=== PATIENT | female | born 1970 | race Caucasian/White ===

== ENCOUNTER 2017-07-18 11:30 | Emergency (ER) | payer BC ==
[2017-07-18 11:54] VITALS: RESP 18
[2017-07-18] MEDS ORDERED: METOCLOPRAMIDE 5 MG/ML 2 ML VIAL IVP STA (13:26)
[2017-07-18] MEDS ORDERED: KETOROLAC 30 MG/ML 1 ML VIAL IVP STA (13:26)
--- NOTE | 2017-07-18 13:28 | ED ---
Headache HPI - General Chief Complaint: Headache Stated Complaint: migraine Time Seen by Provider: 07/18/17 12:56 Source: patient, family, RN notes reviewed Mode of arrival: ambulatory Limitations: no limitations - History of Present Illness Initial Comments: This is a 47-year-old female history of migraine headaches states she had the onset of her typical migraine headache last evening. She states it starts in the lower occipital area radiates across her skull to the front. She's had profound nausea no vomiting no focal weakness she states the pain is typical of her migraine though a little bit worsening usual. He had no fevers chills sweats no earache sore throat rhinorrhea no loss of function to her upper or lower extremities no neck pain. She tried her home medications which failed to help with the headache this time. This has occurred in the past. MD Complaint: headache - Related Data Home Medications Medication Instructions Recorded Confirmed Abatacept [Orencia] 125 mg SQ FR 07/18/17 07/18/17 Citalopram Hydrobromide [CeleXA] 40 mg PO HS 07/18/17 07/18/17 Diclofenac Sodium 50 mg PO BID 07/18/17 07/18/17 Hydrocodone/Acetaminophen 1 - 2 tab PO BID PRN 07/18/17 07/18/17 [Hydrocodone/Acetaminophen 5-300] Levothyroxine Sodium [Synthroid] 50 mcg PO DAILY 07/18/17 07/18/17 Liothyronine Sodium [Cytomel] 5 mcg PO BID 07/18/17 07/18/17 Nadolol [Corgard] 10 mg PO HS 07/18/17 07/18/17 Topiramate [Topamax] 200 mg PO HS 07/18/17 07/18/17 Zaleplon 20 mg PO HS 07/18/17 07/18/17 tiZANidine [Zanaflex] 8 mg PO HS 07/18/17 07/18/17 Allergies Allergy/AdvReac Type Severity Reaction Status Date / Time penicillin V Allergy Anaphylaxis Verified 07/18/17 13:48 Sulfa (Sulfonamide Allergy Rash/Hives Verified 07/18/17 13:48 Antibiotics) Review of Systems ROS Statement: Those systems with pertinent positive or pertinent negative responses have been documented in the HPI. ROS Other: All systems not noted in ROS Statement are negative. Past Medical History Past Medical History: Thyroid Disorder Additional Past Medical History / Comment(s): Migraines, RA History of Any Multi-Drug Resistant Organisms: None Reported Additional Past Surgical History / Comment(s): Femoral nerve tumor removed Past Psychological History: No Psychological Hx Reported, Depression Smoking Status: Never smoker Past Alcohol Use History: Occasional Past Drug Use History: None Reported General Exam - General Exam Comments Initial Comments: This is a well-developed well-nourished awake alert oriented x 3 female Limitations: no limitations General appearance: alert, in no apparent distress Head exam: Present: atraumatic, normocephalic, normal inspection Eye exam: Present: normal appearance, PERRL, EOMI. Absent: scleral icterus, conjunctival injection, periorbital swelling ENT exam: Present: normal exam, mucous membranes moist Neck exam: Present: normal inspection. Absent: tenderness, meningismus, lymphadenopathy Respiratory exam: Present: normal lung sounds bilaterally. Absent: respiratory distress, wheezes, rales, rhonchi, stridor Cardiovascular Exam: Present: regular rate, normal rhythm, normal heart sounds. Absent: systolic murmur, diastolic murmur, rubs, gallop, clicks GI/Abdominal exam: Present: soft, normal bowel sounds. Absent: distended, tenderness, guarding, rebound, rigid Extremities exam: Present: normal inspection, full ROM, normal capillary refill. Absent: tenderness, pedal edema, joint swelling, calf tenderness Back exam: Present: normal inspection Neurological exam: Present: alert, oriented X3, CN II-XII intact Psychiatric exam: Present: normal affect, normal mood Skin exam: Present: warm, dry, intact, normal color. Absent: rash Course Vital Signs 07/18/17 11:51 Temperature 97.0 F L Pulse Rate 79 Respiratory 18 Rate Blood Pressure 129/68 O2 Sat by Pulse 100 Oximetry - Reevaluation(s) Reevaluation #1: 07/18/17 14:29 Patient states she is getting some relief thus far she started a 10/10 severity headache is down to 7/10 at this time. She will receive more medication. Reevaluation #2: 07/18/17 15:27 The patient's headache is now 0 she states after the last round of pain medication. Disposition Clinical Impression: Migraine Disposition: HOME SELF-CARE Condition: Good Instructions: Acute Headache (ED) Additional Instructions: Follow-up with your private medical doctor in 1-2 days Referrals: None,Stated [Primary Care Provider] - 1-2 days
[2017-07-18] MEDS ORDERED: diphenhydrAMINE 50 MG/ML 1 ML VIAL IVP STA (14:28)
[2017-07-18] MEDS ORDERED: HYDROmorphone 1 MG/ML 1 ML SYRINGE IVP STA (14:28)
[2017-07-18 15:34] VITALS: BP 102/90; PULSE 81; TEMP 98
== END 2017-07-18 15:37 | disposition home or self-care (01) ==
LOC: EC 11:30
DX: G43.909 Migraine, unspecified, not intractable, without status migrainosus (principal); E07.9 Disorder of thyroid, unspecified; F32.9 Major depressive disorder, single episode, unspecified; M06.9 Rheumatoid arthritis, unspecified; Z79.899 Other long term (current) drug therapy; Z88.0 Allergy status to penicillin; Z88.2 Allergy status to sulfonamides
CPT/HCPCS: 99283 ×2; 96374 ×2; 96375 ×4; J1200; J2765; J1885; J1170

== ENCOUNTER → 2018-08-19 | Outpatient (CLI) | payer BC ==
--- NOTE | 2018-08-19 11:44 | FL ---
EXAMINATION TYPE: FL barium swallow w video DATE OF EXAM: 08/19/2018 MODIFIED SWALLOW / DEGLUTITION STUDY CLINICAL HISTORY: Pill dysphagia. Possible Vinita's thyroiditis and Sjogren syndrome. TECHNIQUE: Deglutition study is performed utilizing thin liquid barium, barium thick pudding, and ba rium coated cracker. 2.19 minutes of fluoroscopy time was utilized. No fluoroscopic images were saved as the exam was video recorded. COMPARISON: None. FINDINGS: The oral and pharyngeal phases show satisfactory initiation and propagation with all modali ties tested. Normal mastication is seen with solid modalities tested. There is no evidence of penet ration or aspiration with any modality tested. Mid esophageal pharyngeal residue was appreciated. Sub sequently frontal images were then evaluated to further evaluate the pharyngeal residue. Persistent f ocal delayed transit in the upper to mid thoracic esophagus was appreciated with both barium coated p udding consistency and thin consistency without abnormal beaking or abnormal tertiary contractions. IMPRESSION: Normal oral and upper pharyngeal torsion of the deglutition study. However focal delaye d transit in the upper to mid thoracic esophagus is appreciated with no high-grade strictures seen. D ifferential is for low-grade stricture or motility disorder. Endoscopy is recommended for direct visu alization. Please refer to speech therapist notes for further details if necessary.
== END | disposition home or self-care (01) ==
LOC: RADFLMAIN 10:41
PROVIDERS: ATTEND Internal Medicine Endocrinology, Diabetes & Metabolism
DX: R13.10 Dysphagia, unspecified (principal)
CPT/HCPCS: 74230

== ENCOUNTER → 2019-07-28 | Outpatient (CLI) | payer BC ==
--- NOTE | 2019-07-30 20:55 | XR ---
EXAMINATION TYPE: XR wrist complete 4 views BILATERAL, XR hand complete 3 views bilateral DATE OF EXAM: 07/28/2019 COMPARISON: NONE HISTORY: 49-year-old female rheumatoid arthritis FINDINGS: Wrist: On the right, there is a small ossicle adjacent to the fracture. Slight positive ulnar variance outsi de. The radiocarpal and distal radioulnar joints as well as the midcarpal compartment appear intact. No acute fracture, subluxation, or dislocation. Hands: No marginal erosions or soft tissue calcifications seen. No acute fracture, subluxation, or dislocati on. Some periarticular osteopenia is noted. IMPRESSION: Some periarticular osteopenia which can be seen as an early change of rheumatoid arthritis. Otherwise , no marginal erosions or other specific radiographic findings of rheumatoid arthritis in the wrist o r hands at this time.
--- NOTE | 2019-07-30 20:58 | XR ---
EXAMINATION TYPE: XR ankle complete 3 views bilateral, XR foot complete 3 views bilateral DATE OF EXAM: 07/28/2019 Comparison: None Clinical History: 49-year-old female M06.9 Rheumatoid Arthritis Findings: Ankles: Ankle mortises are congruent. Achilles tendon smoothly delineated. No acute fracture, subluxation, or dislocation. No marginal erosions are seen. Subtalar joints are aligned. Feet: Mild degenerative change at the first MTP joints with bunion formation. Bipartite tibial sesamoid on the left. No acute fracture, subluxation, dislocation. No marginal erosion seen. IMPRESSION: 1. Mild osteoarthritic change at the bilateral first MTP joints with bunion formation. 2. No marginal erosions or specific radiographic findings of rheumatoid arthritis in the ankles or fe et.
== END ==
LOC: RADXRMAIN 16:52
PROVIDERS: ATTEND Internal Medicine Rheumatology
DX: M85.842 Other specified disorders of bone density and structure, left hand (principal); M85.841 Other specified disorders of bone density and structure, right hand; M19.072 Primary osteoarthritis, left ankle and foot; M19.071 Primary osteoarthritis, right ankle and foot

== ENCOUNTER → 2020-04-08 | Outpatient (CLI) | payer BC ==
[2020-04-08 12:27] LABS: HCT 39.9 % (34.0-46.0); HGB 13.4 gm/dL (11.4-16.0); MCH 31.1 pg (25.0-35.0); MCHC 33.5 g/dL (31.0-37.0); MCV 92.9 fL (80.0-100.0); Mean Platelet Volume 6.6; Platelet Count 269 k/uL (150-450); RDW 13.5 % (11.5-15.5); WBC 7.6 k/uL (3.8-10.6)
[2020-04-08 13:38] LABS: Appearance,Urine Cloudy (Clear); Bacteria,Urine Rare /hpf; Bilirubin,Urine Negative (Negative); Blood,Urine Negative (Negative); Color,Urine Yellow; Glucose,Urine (UA) Negative (Negative); Ketones,Urine Negative (Negative); Leukocyte Esterase,Urine Negative (Negative); Mucus,Urine Occasional /hpf; Nitrite,Urine Negative (Negative); PH, Urine 5.5 (5.0-8.0); Protein,Urine Negative (Negative); RBC,Urine <1 /hpf (0-5); Specific Gravity,Urine 1.007 (1.001-1.035); Squamous Epithelial Cell,Urine 9 /hpf (0-4); Urobilinogen,Urine <2.0 mg/dL (<2.0); WBC,Urine 2 /hpf (0-5)
[2020-04-08 20:15] LABS: Albumin 4.4 g/dL (3.80-4.90); Albumin/Globulin Ratio 1.83 (1.60-3.17); Anion Gap 9.9 mmol/L (4.00-12.00); Calcium 9.4 mg/dL (8.7-10.3); Carbon Dioxide 21.1 mmol/L (21.6-31.8); Globulin 2.4 g/dL (1.6-3.3); Non-African American GFR(CKD) 87.2 (60.0-200.0); Potassium 4.2 mmol/L (3.5-5.5); Total Bilirubin 0.3 mg/dL (0.2-1.2); Total Protein 6.8 g/dL (6.2-8.2)
== END | disposition home or self-care (01) ==
LOC: LABWHC1 10:52
PROVIDERS: ATTEND Psychiatry & Neurology Neurology
DX: Z51.81 Encounter for therapeutic drug level monitoring (principal); Z79.899 Other long term (current) drug therapy
CPT/HCPCS: 36415; 80053; 80307; 80345; 80353; 80364; 81001; 85027

== ENCOUNTER → 2020-04-24 | Outpatient (CLI) | payer BC ==
[2020-04-25 00:55] LABS: T4, Free (Free Thyroxine) 0.9 ng/dL (0.80-1.80)
== END | disposition home or self-care (01) ==
LOC: LABWHC1 14:33
PROVIDERS: ATTEND Internal Medicine
DX: E03.9 Hypothyroidism, unspecified (principal); E04.2 Nontoxic multinodular goiter
CPT/HCPCS: 36415; 82306; 84439; 84443

== ENCOUNTER → 2021-11-26 | Outpatient (CLI) | payer BC ==
--- NOTE | 2021-11-26 13:59 | XR ---
Cervical spine with flexion and extension views HISTORY: M 54.2 5 views of the cervical spine Cervical vertebral bodies show preserved height, alignment, and bone mineralization. Disc spaces and prevertebral soft tissues are normal. Minimal anterolisthesis grade 1 C2-3 flexion view is thought li gabriel to be physiologic. Odontoid view is limited. Lung apices are unremarkable. IMPRESSION: Normal cervical spine.
== END | disposition home or self-care (01) ==
LOC: RADXRMAIN 10:57
PROVIDERS: ATTEND Family Medicine
DX: M54.2 Cervicalgia (principal)
CPT/HCPCS: 72052

== ENCOUNTER → 2022-04-14 | Outpatient (CLI) | payer BC ==
--- NOTE | 2022-04-16 18:55 | MM ---
Reason for Exam: Screening (asymptomatic). Last mammogram was performed 9 year(s) and 7 month(s) ago. Patient History: Menarche at age 16. First Full-Term at age 19. Premenopausal. Currently using Hormonal Contraceptives, for 20 years. Risk Values: Annabelle 5 year model risk: 0.6%. NCI Lifetime model risk: 6.0%. Prior Study Comparison: 09/21/2012 Bilateral Screening Mammogram, [facility]. Tissue Density: The breast tissue is heterogeneously dense. This may lower the sensitivity of mammography. Findings: There is no suspicious group of microcalcifications or new suspicious mass in either breast. Overall Assessment: Negative, BI-RAD 1 Management: Screening Mammogram of both breasts in 1 year. 1. Patient should continue monthly self breast exams. 2. A clinical breast exam by your physician is recommended on an annual basis. 3. This exam should not preclude additional follow-up of suspicious palpable abnormalities. Electronically signed and approved by: Leela Arizmendi M.D. Radiologist
== END | disposition home or self-care (01) ==
LOC: RADMAMWWP 12:50
PROVIDERS: ATTEND Family Medicine
DX: Z12.31 Encounter for screening mammogram for malignant neoplasm of breast (principal); M89.9 Disorder of bone, unspecified; N95.1 Menopausal and female climacteric states
CPT/HCPCS: 77063; 77067

== ENCOUNTER → 2022-04-15 | Outpatient (CLI) | payer BC ==
--- NOTE | 2022-04-17 16:21 | BD ---
EXAMINATION TYPE: Axial Bone Density DATE OF EXAM: 04/15/2022 COMPARISON: NONE CLINICAL HISTORY: 51 years year old Female. ICD-10 CODE: N95.1 M89.9 Height: 5 FT 5 IN Weight: 144 FRAX RISK QUESTIONS: Alcohol (3 or more units per day): NO Family History (Parent hip fracture): NO Glucocorticoids (More than 3mos): NO (Ex: prednisone, prednisolone, methylprednisolone, dexamethasone, and hydrocortisone). History of Fracture in Adulthood: NO Secondary Osteoporosis: 1. Type 1 Diabetes: NO 2. Hyperthyroidism: ZOFIA 3. Menopause before 45: NO 4. Malnutrition: NO 5. Chronic liver disease: NO Rheumatoid Arthritis: YES Current Tobacco Use: NO RISK FACTORS HISTORY OF: Surgery to Spine/Hip(right/left)/Wrist (right/left): NO Family History of Osteoporosis: YES Active: YES Diet low in dairy products/other sources of calcium: NO Postmenopausal woman: NO If Premenopausal, do you have irregular periods: YES Take estrogen and/or progesterone medications: NO Lost more than 2 inches in height since high school: NO Frequent falls: NO Poor Health: GOOD Hyperparathyroidism: NO Adrenal Insufficiency: NO MEDICATIONS: Thyroid Medications: YES Which medication: LEVOTHYROXINE,LIOTHYRONINE How Lon YEARS Additional Medications: BOTOX FOR MIGRAINES, ORENCIA, TOPIRAMATE, TIZANIDINE, ZALEPLON, LEVOTHYROXINE , LIOTHYRONINE, DICLOFENAC,HYDROCODON-ACETAMINOPHEN Additional History: EXAM MEASUREMENTS: Bone mineral densitometry was performed using the [employer] System. Bone mineral density as measured about the Lumbar spine is: ----- L1-L4(G/cm2): 1.043 T Score Values are as follows: ----- L1: -0.9 ----- L2: -1.5 ----- L3: -1.2 ----- L4: -1.1 ----- L1-L4: -1.1 PREV UNAVAILABLE Bone mineral density about the R hip (g/cm2): 0.764 Bone mineral density about the L hip (g/cm2): 0.717 T Score values are as follows: -----R Neck: -2.0 -----L Neck: -2.3 -----R Total: -2.0 -----L Total: -2.5 PREV UNAVAILABLE FRAX%s: The graph provided illustrates a 8.5 % chance for a major osteoporotic fx and a 1.7 % chance for the hips probability for fx in 10 years time. IMPRESSION: Osteoporosis (T Score less than -2.5). There is increased fracture risk and therapy is usually indicated based on age. Re-Screen 1-2 years. NOTE: T-SCORE=SD OF THE YOUNG ADULT MEAN.
== END | disposition home or self-care (01) ==
LOC: RADBDWWP 15:35
PROVIDERS: ATTEND Family Medicine
DX: M81.0 Age-related osteoporosis without current pathological fracture (principal)
CPT/HCPCS: 77080

== ENCOUNTER → 2022-04-22 | Outpatient (CLI) | payer BC ==
[2022-04-22 14:51] LABS: Appearance,Urine Clear (Clear); Bilirubin,Urine Negative (Negative); Blood,Urine Negative (Negative); Color,Urine Light Yellow; Glucose,Urine (UA) Negative (Negative); Ketones,Urine Negative (Negative); Leukocyte Esterase,Urine Negative (Negative); Nitrite,Urine Negative (Negative); PH, Urine 5.5 (5.0-8.0); Protein,Urine Negative (Negative); Specific Gravity,Urine 1.005 (1.001-1.035); Urobilinogen,Urine <2.0 mg/dL (<2.0)
[2022-04-22 19:04] LABS: Basophils # (A) 0.03 X 10*3/uL (0.00-0.10); Basophils % (A) 0.4 %; Eosinophils # (A) 0.14 X 10*3/uL (0.04-0.35); Eosinophils % (A) 1.9 %; HGB 12.9 g/dL (12.0-15.0); Immature Grans, Automated 0.4 %; Lymphocytes # (A) 2.77 X 10*3/uL (0.90-5.00); Lymphocytes % (A) 37.2 %; MCH 28.5 pg (27.0-32.0); MCHC 31.5 g/dL (32.0-37.0); MCV 90.5 fL (80.0-97.0); Mean Platelet Volume 9.7 fL (9.5-12.2); Monocytes # (A) 0.44 X 10*3/uL (0.20-1.00); Monocytes % (A) 5.9 %; NRBC Per 100 WBC 0 /100 WBCS (0.0-0.0); Neutrophils # (A) 4.04 X 10*3/uL (1.80-7.70); Neutrophils % (A) 54.2 %; Platelet Count 223 X 10*3/uL (140-440); RBC 4.53 X 10*6/uL (4.10-5.20); RDW 13.8 % (11.5-14.5); WBC 7.45 X 10*3/uL (4.50-10.00)
[2022-04-22 22:27] LABS: African American GFR (CKD) 94.3 (60.0-200.0); Albumin 4.5 g/dL (3.8-4.9); Albumin/Globulin Ratio 1.76 (1.60-3.17); Anion Gap 12.4 mmol/L (10.00-18.00); BUN/Creat Ratio 8.53 Ratio (12.00-20.00); Blood Urea Nitrogen 7.1 mg/dL (9.0-27.0); Calcium 9.5 mg/dL (8.7-10.3); Carbon Dioxide 24.6 mmol/L (20.0-27.5); Globulin 2.6 g/dL (1.6-3.3); Non-African American GFR(CKD) 81.4 (60.0-200.0); Potassium 3.8 mmol/L (3.5-5.5); T4, Free (Free Thyroxine) 0.74 ng/dL (0.800-1.800); Total Bilirubin 0.3 mg/dL (0.30-1.20); Total Protein 7.1 g/dL (6.2-8.2)
== END | disposition home or self-care (01) ==
LOC: LABWHC1 13:31
PROVIDERS: ATTEND Internal Medicine
DX: E03.9 Hypothyroidism, unspecified (principal); E55.9 Vitamin D deficiency, unspecified; G43.719 Chronic migraine without aura, intractable, without status migrainosus; Z79.899 Other long term (current) drug therapy
CPT/HCPCS: 36415; 80053; 81003; 82306; 84439; 84443; 85025

== ENCOUNTER → 2022-08-28 | Outpatient (CLI) | payer OTHER ==
--- NOTE | 2022-08-28 16:02 | XR ---
EXAMINATION TYPE: XR shoulder complete 3 views RT DATE OF EXAM: 08/28/2022 Comparison: None Clinical History: 52-year-old female S43.401A Right arm sprain Findings: AC joint is intact. No abnormal capsular swelling. Subacromial space is preserved. No acute fracture, subluxation, dislocation. Visualized right hemithorax is clear. Impression: No acute osseous abnormality seen.
== END | disposition home or self-care (01) ==
LOC: RADXRMAIN 15:32
PROVIDERS: ATTEND Emergency Medicine
DX: S43.401A Unspecified sprain of right shoulder joint, initial encounter (principal)

== ENCOUNTER → 2023-05-07 | Outpatient (CLI) | payer BC | END | disposition home or self-care (01) | LOC: LABWHC1 14:25 | PROVIDERS: ATTEND Family Medicine | DX: Z53.9 Procedure and treatment not carried out, unspecified reason (principal) ==

== ENCOUNTER → 2023-05-14 | Outpatient (CLI) | payer BC ==
[2023-05-14 19:57] LABS: Bacteria,Urine 1+ (None Seen)
[2023-05-14 20:02] LABS: Appearance,Urine Turbid (Clear); Bilirubin,Urine Negative (Negative); Blood,Urine Negative (Negative); Color,Urine Yellow (Yellow); Ketones,Urine Trace (Negative); Nitrite,Urine Negative (Negative); PH, Urine 5.5; Specific Gravity,Urine 1.021 (1.001-1.030)
[2023-05-14 20:13] LABS: ALT 21 U/L (8-44); AST 25 U/L (13-35); Albumin 4.2 d/dL (3.8-4.9); Albumin/Globulin Ratio 1.56 Ratio (1.60-3.17); Alkaline Phosphatase 95 U/L (41-126); BUN/Creat Ratio 12.57 Ratio (12.00-20.00); Blood Urea Nitrogen 8.8 mg/dL (9.0-27.0); C Reactive Protein <0.30 mg/dL (0.00-0.80); Calcium 9.4 mg/dL (8.7-10.3); Carbon Dioxide 21.1 mmol/L (21.6-31.8); Chloride 108 mmol/L (96-109); Chol/HDL Ratio 5.58 Ratio; Globulin 2.7 d/dL (1.6-3.3); Glucose 89 mg/dL (70-110); Potassium 4.1 mmol/L (3.5-5.5); Sodium 140 mmol/L (135-145); T4, Free (Free Thyroxine) 0.82 ng/dL (0.80-1.80); Total Bilirubin 0.3 mg/dL (0.3-1.2); Total Protein 6.9 d/dL (6.2-8.2)
[2023-05-14 21:34] LABS: Erythrocyte Sedimentation Rate 22 mm/Hr (0-30)
[2023-05-14 23:19] LABS: Urine Alcohol Negative (Negative); Urine Barbiturate Negative (Negative); Urine Cocaine Negative (Negative); Urine Methadone Negative (Negative); Urine Opiates Negative (Negative); Urine Phencyclidine Negative (Negative)
[2023-05-15 06:02] LABS: Basophils # (A) 0.03 X 10*3/uL (0.00-0.10); Basophils % (A) 0.3 %; Eosinophils # (A) 0.12 X 10*3/uL (0.04-0.35); Eosinophils % (A) 1.3 %; HCT 39.9 % (37.2-46.3); HGB 12.9 d/dL (12.0-15.0); Lymphocytes # (A) 3.56 X 10*3/uL (0.90-5.00); Lymphocytes % (A) 38.3 %; MCH 29.1 pg (27.0-32.0); MCHC 32.3 d/dL (32.0-37.0); MCV 90.1 FL (80.0-97.0); Mean Platelet Volume 10.5 FL (9.5-12.2); Monocytes # (A) 0.55 X 10*3/uL (0.20-1.00); Monocytes % (A) 5.9 %; NRBC Per 100 WBC 0 X 10*3/uL (0.00-0.01); Neutrophils # (A) 5.02 X 10*3/uL (1.80-7.70); Platelet Count 238 X 10*3/uL (140-440); RBC 4.43 X 10*6/uL (4.10-5.20); RDW 13.1 % (11.5-14.5)
== END | disposition home or self-care (01) ==
LOC: LABWHC1 15:04
PROVIDERS: ATTEND Family Medicine
DX: Z01.419 Encounter for gynecological examination (general) (routine) without abnormal findings (principal); E06.3 Autoimmune thyroiditis; G43.819 Other migraine, intractable, without status migrainosus; E53.8 Deficiency of other specified B group vitamins; E55.9 Vitamin D deficiency, unspecified; R94.31 Abnormal electrocardiogram [ECG] [EKG]
CPT/HCPCS: 36415; 80053; 80061; 80306; 81001; 82306; 82607; 84439; 84443; 84480; 85025; 85652; 86140; 93005

== ENCOUNTER → 2023-05-18 | Outpatient (CLI) | payer BC ==
--- NOTE | 2023-05-19 13:49 | MM ---
Reason for Exam: Screening (asymptomatic). Last mammogram was performed 1 year(s) and 1 month(s) ago. Patient History: Menarche at age 16. First Full-Term at age 19. Postmenopausal. Patient used Hormonal Contraceptives for 20 years. Risk Values: Annabelle 5 year model risk: 0.7%. NCI Lifetime model risk: 5.8%. Prior Study Comparison: 09/21/2012 Bilateral Screening Mammogram, [facility]. 04/14/2022 Bilateral MG 3D screening mammo w/cad, [facility]. Tissue Density: The breast tissue is heterogeneously dense. This may lower the sensitivity of mammography. Findings: Analyzed By CAD. There is no suspicious group of microcalcifications or new suspicious mass in either breast. Overall Assessment: Negative, BI-RAD 1 Management: Screening Mammogram of both breasts in 1 year. . Patient should continue monthly self-breast exams. A clinical breast exam by your physician is recommended on an annual basis. This exam should not preclude additional follow-up of suspicious palpable abnormalities. Note on Annabelle scores and lifetime risk: 1. A Annabelle score greater than 3% is considered moderate risk. If this is the case, consider specialist referral to assess eligibility for a risk reducing agent. 2. If overall lifetime risk for the development of breast cancer is 20% or higher, the patient may qualify for future screening with alternating mammogram and breast MRI. Electronically signed and approved by: Dominik Reardon M.D. Radiologis
== END | disposition home or self-care (01) ==
LOC: RADMAMWWP 16:23
PROVIDERS: ATTEND Family Medicine
DX: Z12.31 Encounter for screening mammogram for malignant neoplasm of breast (principal); Z78.0 Asymptomatic menopausal state; Z80.3 Family history of malignant neoplasm of breast
CPT/HCPCS: 77063; 77067